=== PATIENT | male | born 1950 | race African-American/Black ===

== ENCOUNTER 2021-07-12 14:32 | Inpatient (IN) | payer MEDICARE, OTHER ==
[~2021-07-12] VITALS: Ht 170.2 cm; Wt 75.5 kg
[~2021-07-12 14:32] MED LIST: ARIP2TAB27 PO; ASPI-1444 PO; CHOL500050 PO; DOXA2TAB86 PO; FERR325T27 PO; FLUO-177 PO; INSLAN SQ; INSU100C3 SQ; RISP0.5T39 PO; SIMV-261 PO; TESTC200I IM; TRAM50TA4 PO
[2021-07-12 15:07] LABS: BASOPHILS % (AUTO) 0.4 % (0.0-2.0); EOSINOPHILS % (AUTO) 0.1 % (1.0-6.0); HEMOGLOBIN 12.6 g/dL (13.5-17.5); LYMPHOCYTES # (AUTO) 1.1 K/uL (1.0-4.8); LYMPHOCYTES % (AUTO) 12.1 % (22.0-44.0); MEAN CORPUSCULAR HGB CONC 34.1 G/dL (31.0-37.0); MEAN CORPUSCULAR VOLUME 88 fL (80-100); MONOCYTES # (AUTO) 1.1 K/uL (0.1-1.0); MONOCYTES % (AUTO) 12.1 % (2.0-9.0); NEUTROPHILS # (AUTO) 6.9 K/uL (1.8-7.7); NEUTROPHILS % (AUTO) 75.3 % (40.0-70.0); PLATELET COUNT (AUTO) 458 K/uL (150-450); RED BLOOD CELL COUNT(AUTO) 4.21 MIL/uL (4.50-5.90); RED CELL DISTRIBUTION WIDTH 13.5 % (11.5-14.5)
[2021-07-12 15:32] LABS: ALANINE AMINOTRANSFERASE 123 U/L (12-78); ALBUMIN 4.2 g/dL (3.4-5.0); ALKALINE PHOSPHATASE 65 U/L (46-116); ANION GAP 19 mmol/L (8-16); ASPARTATE AMINOTRANSFERASE 220 U/L (15-37); BILIRUBIN,TOTAL 0.8 mg/dL (0.1-1.0); CALCIUM, TOTAL 9.9 mg/dL (8.8-10.5); CARBON DIOXIDE 17 mmol/L (22-29); CHLORIDE 89 mmol/L (98-107); CREATININE 6.88 mg/dL (0.60-1.30); GLOMERULAR FILTR. RATE CALC 10 mL/min (>60); GLUCOSE,RANDOM 97 mg/dL (70-110); POTASSIUM 5.9 mmol/L (3.5-5.1); SODIUM SERUM 125 mmol/L (136-145); THYROID STIMULATING HORMONE 1.55 uIU/mL (0.36-3.74); TOTAL PROTEIN, SERUM 9.8 g/dL (6.4-8.2)
[2021-07-12 15:39] LABS: COVID AG,FIA SOURCE NASAL SWAB
[2021-07-12 15:41] LABS: UREA NITROGEN, BLOOD 128 mg/dL (7-18)
[2021-07-12 15:45] LABS: APPEARANCE,URINE CLEAR (CLEAR); BILIRUBIN,URINE NEGATIVE (NEGATIVE); GLUCOSE, URINE (UA) NEGATIVE (NEGATIVE); KETONES,URINE NEGATIVE (NEGATIVE); LEUKOCYTE ESTERASE ,URINE NEGATIVE (NEGATIVE); NITRATE,URINE NEGATIVE (NEGATIVE); OCCULT BLOOD,URINE TRACE (NEGATIVE); PROTEIN,URINE TRACE mg/dL (NEGATIVE); SPECIFIC GRAVITIY, URINE 1.011 (1.003-1.030); UROBILINOGEN,URINE <=1.0 mg/dL (<=1.0)
[2021-07-12 15:48] LABS: BACTERIA,URINE None Seen /HPF (None Seen); RBC,URINE 0-2 /HPF (0-2); WBC,URINE None Seen /HPF (0-5)
[2021-07-12 15:52] LABS: AMPHET/METH SCREEN,URINE NEGATIVE (NEGATIVE); BARBITURATE SCREEN, URINE NEGATIVE (NEGATIVE); BENZODIAZEPINES SCREEN,URINE NEGATIVE (NEGATIVE); CANNABINOID SCREEN,URINE POSITIVE (NEGATIVE); COCAINE SCREEN,URINE NEGATIVE (NEGATIVE); METHADONE SCREEN, URINE NEGATIVE (NEGATIVE); OPIATE SCREEN,URINE NEGATIVE (NEGATIVE)
[2021-07-12 16:01] LABS: PHENCYCLIDINE SCREEN,URINE NEGATIVE (NEGATIVE)
[2021-07-12] MEDS ORDERED: SODIUM CHLORIDE 0.9% 1,000 ML IV ONE ×3 (16:15→17:15)
[2021-07-12] MEDS ORDERED: LORazepam 2 MG/ML VIAL IVP ONE (16:15)
[2021-07-12] MEDS ORDERED: SODIUM POLYSTYRENE SULFONATE 15 GM/60 ML SUSPENSION BOTTLE PO ONE (16:45)
[2021-07-12] MEDS ORDERED: CALCIUM GLUCONATE 1,000 MG in DEXTROSE 5%-WATER 50 ML IV ONE (16:45)
[2021-07-12] MEDS ORDERED: INSULIN REGULAR, HUMAN 100 UNITS/ML IVP ONE (16:45)
[2021-07-12] MEDS ORDERED: ALBUTEROL SULFATE 2.5 MG/0.5 ML NEB SOLUTION NEB ONE (16:45)
[2021-07-12] MEDS ORDERED: FUROSEMIDE 40 MG/4 ML VIAL IVP ONE (16:45)
[2021-07-12] MEDS ORDERED: DEXTROSE 50%-WATER 25 GM/50 ML SYRINGE IVP ONE (16:45)
[2021-07-12] MEDS ORDERED: SODIUM BICARBONATE [ADULT] 8.4% 50 MEQ/50 ML SYRINGE IVP ONE (16:45)
[2021-07-12] MEDS ORDERED: ACETAMINOPHEN 325 MG TABLET PO PRN (17:00)
[2021-07-12] MEDS ORDERED: DEXTROSE 50%-WATER 25 GM/50 ML SYRINGE IVP PRN (17:00)
[2021-07-12] MEDS ORDERED: ONDANSETRON HCL 4 MG/2 ML VIAL IVP PRN (17:00)
[2021-07-12 17:19] LABS: PROTHROMBIN TIME 10.7 SEC (9.4-11.6)
[2021-07-12 17:59] LABS: LACTIC ACID 1.7 mmol/L (0.4-2.0)
[2021-07-12 18:06] LABS: SALICYLATE 2.9 mg/dL (2.8-20.0)
[2021-07-12 18:07] LABS: ACETAMINOPHEN < 2 mcg/mL (10-30)
[2021-07-12 18:21] LABS: GLUCOSE,POINT OF CARE 69 MG/DL (70-110)
[2021-07-12 19:32] VITALS: BP 133/74
[2021-07-12] MEDS: DOCUSATE SODIUM 100 MG CAPSULE PO SCH (21:00)
[2021-07-12] MEDS: HEPARIN SODIUM,PORCINE 5,000 UNITS/ML VIAL SQ SCH (21:00)
[2021-07-12 22:59] LABS: CALCIUM, TOTAL 8.6 mg/dL (8.8-10.5); CREATININE 5.95 mg/dL (0.60-1.30); MAGNESIUM 2.5 mg/dL (1.80-2.40); PHOSPHORUS 6.3 mg/dL (2.5-4.9); POTASSIUM 4.8 mmol/L (3.5-5.1)
[2021-07-13 00:09] VITALS: BP 115/79
[2021-07-13] MEDS: SODIUM CHLORIDE 0.9% 1,000 ML IV SCH ×2 (01:02→16:41)
[2021-07-13 04:32] VITALS: BP 114/71
[2021-07-13 06:25] LABS: ALBUMIN 3.2 g/dL (3.4-5.0); BILIRUBIN,TOTAL 0.6 mg/dL (0.1-1.0); CREATININE 5.05 mg/dL (0.60-1.30); MAGNESIUM 2.5 mg/dL (1.80-2.40); PHOSPHORUS 5.9 mg/dL (2.5-4.9); POTASSIUM 4.8 mmol/L (3.5-5.1); TOTAL PROTEIN, SERUM 7.6 g/dL (6.4-8.2)
[2021-07-13] MEDS: PANTOPRAZOLE SODIUM 40 MG DR TABLET PO SCH (08:05)
[2021-07-13] MEDS: VITAMIN B COMP/VIT C/FOLIC ACID CAPSULE PO SCH (08:05)
[2021-07-13] MEDS: HEPARIN SODIUM,PORCINE 5,000 UNITS/ML VIAL SQ SCH ×2 (08:05→20:24)
[2021-07-13 08:38] VITALS: BP 133/83
[2021-07-13] MEDS: DOCUSATE SODIUM 100 MG CAPSULE PO SCH ×2 (09:00→20:25)
[2021-07-13 13:45] VITALS: BP 138/72
[2021-07-13 19:24] VITALS: BP 118/63
[2021-07-13 20:26] LABS: GLUCOMETER DEV NAME(LOC) 5N.1C; GLUCOSE,POINT OF CARE 117 MG/DL (70-110)
[2021-07-13 20:26] LABS: GLUCOMETER DEV NAME(LOC) 5N.1C; GLUCOSE,POINT OF CARE 119 MG/DL (70-110)
[2021-07-13 21:06] LABS: GLUCOMETER DEV NAME(LOC) 5N.1C; GLUCOSE,POINT OF CARE 131 MG/DL (70-110)
[2021-07-14 00:18] VITALS: BP 131/75
[2021-07-14] MEDS: SODIUM CHLORIDE 0.9% 1,000 ML IV SCH ×2 (04:36→21:09)
[2021-07-14 04:42] VITALS: BP 104/63
[2021-07-14 07:20] LABS: BASOPHILS % (AUTO) 0.3 % (0.0-2.0); EOSINOPHILS % (AUTO) 1.5 % (1.0-6.0); HEMATOCRIT 29.1 % (41-53); HEMOGLOBIN 9.9 g/dL (13.5-17.5); LYMPHOCYTES # (AUTO) 1.4 K/uL (1.0-4.8); LYMPHOCYTES % (AUTO) 22.7 % (22.0-44.0); MEAN CORPUSCULAR HEMOGLOBIN 30.2 pg (26.0-34.0); MEAN CORPUSCULAR HGB CONC 34.1 G/dL (31.0-37.0); MEAN CORPUSCULAR VOLUME 89 fL (80-100); MONOCYTES # (AUTO) 0.9 K/uL (0.1-1.0); MONOCYTES % (AUTO) 15.6 % (2.0-9.0); NEUTROPHILS # (AUTO) 3.6 K/uL (1.8-7.7); NEUTROPHILS % (AUTO) 59.9 % (40.0-70.0); PLATELET COUNT (AUTO) 353 K/uL (150-450); RED BLOOD CELL COUNT(AUTO) 3.29 MIL/uL (4.50-5.90); RED CELL DISTRIBUTION WIDTH 13.2 % (11.5-14.5)
[2021-07-14 07:36] LABS: CALCIUM, TOTAL 8.6 mg/dL (8.8-10.5); CREATININE 2.13 mg/dL (0.60-1.30); MAGNESIUM 1.6 mg/dL (1.80-2.40); PHOSPHORUS 3.5 mg/dL (2.5-4.9); POTASSIUM 4.2 mmol/L (3.5-5.1)
[2021-07-14 08:06] VITALS: BP 104/61
[2021-07-14] MEDS: DOCUSATE SODIUM 100 MG CAPSULE PO SCH ×2 (08:56→20:26)
[2021-07-14] MEDS: HEPARIN SODIUM,PORCINE 5,000 UNITS/ML VIAL SQ SCH ×2 (08:56→20:27)
[2021-07-14] MEDS: PANTOPRAZOLE SODIUM 40 MG DR TABLET PO SCH (08:56)
[2021-07-14] MEDS: VITAMIN B COMP/VIT C/FOLIC ACID CAPSULE PO SCH (08:56)
[2021-07-14] MEDS: LORazepam 2 MG/ML VIAL IVP PRN (10:33)
[2021-07-14 15:48] VITALS: BP 101/61
[2021-07-14 20:00] VITALS: BP 123/67
[2021-07-15] VITALS (7 sets, daily range): BP systolic 110–131; BP diastolic 61–77
[2021-07-15] MEDS: DOCUSATE SODIUM 100 MG CAPSULE PO SCH ×2 (09:00→21:15)
[2021-07-15] MEDS: HEPARIN SODIUM,PORCINE 5,000 UNITS/ML VIAL SQ SCH ×2 (09:19→21:15)
[2021-07-15] MEDS: LORazepam 2 MG/ML VIAL IVP PRN (09:19)
[2021-07-15] MEDS: PANTOPRAZOLE SODIUM 40 MG DR TABLET PO SCH (09:19)
[2021-07-15] MEDS: VITAMIN B COMP/VIT C/FOLIC ACID CAPSULE PO SCH (09:19)
[2021-07-15] MEDS: SODIUM CHLORIDE 0.9% 1,000 ML IV SCH (09:20)
[2021-07-15 10:07] LABS: GLUCOMETER DEV NAME(LOC) 5N.1C; GLUCOSE,POINT OF CARE 106 MG/DL (70-110)
[2021-07-15 10:07] LABS: GLUCOMETER DEV NAME(LOC) 5N.1C; GLUCOSE,POINT OF CARE 100 MG/DL (70-110)
[2021-07-15 10:07] LABS: GLUCOMETER DEV NAME(LOC) 5N.1C; GLUCOSE,POINT OF CARE 138 MG/DL (70-110)
[2021-07-15 10:07] LABS: GLUCOMETER DEV NAME(LOC) 5N.1C; GLUCOSE,POINT OF CARE 99 MG/DL (70-110)
[2021-07-15 10:07] LABS: GLUCOMETER DEV NAME(LOC) 5N.1C; GLUCOSE,POINT OF CARE 114 MG/DL (70-110)
[2021-07-15 10:11] LABS: GLUCOMETER DEV NAME(LOC) 5N.3; GLUCOSE,POINT OF CARE 76 MG/DL (70-110)
[2021-07-15] MEDS: INSULIN LISPRO 100 UNITS/ML SQ PRN (13:38)
[2021-07-15 20:16] LABS: GLUCOMETER DEV NAME(LOC) 5N.1C; GLUCOSE,POINT OF CARE 161 MG/DL (70-110)
[2021-07-15 20:16] LABS: GLUCOMETER DEV NAME(LOC) 5N.1C; GLUCOSE,POINT OF CARE 76 MG/DL (70-110)
[2021-07-15] MEDS ORDERED: SODIUM CHLORIDE 0.9% 500 ML IV ONE (20:17)
[2021-07-15 21:06] LABS: GLUCOMETER DEV NAME(LOC) 5N.3; GLUCOSE,POINT OF CARE 160 MG/DL (70-110)
[2021-07-15] MEDS: ZOLPIDEM TARTRATE 5 MG TABLET PO PRN (21:16)
[2021-07-16] MEDS: SODIUM CHLORIDE 0.9% 1,000 ML IV SCH (00:17)
[2021-07-16 03:47] VITALS: BP 104/63
[2021-07-16 06:01] LABS: GLUCOMETER DEV NAME(LOC) 5N.3; GLUCOSE,POINT OF CARE 95 MG/DL (70-110)
[2021-07-16 07:50] LABS: ANION GAP 6 mmol/L (8-16); CALCIUM, TOTAL 8.1 mg/dL (8.8-10.5); CARBON DIOXIDE 24 mmol/L (22-29); CHLORIDE 106 mmol/L (98-107); CREATININE 1.18 mg/dL (0.60-1.30); GLOMERULAR FILTR. RATE CALC > 60 mL/min (>60); GLUCOSE,RANDOM 91 mg/dL (70-110); POTASSIUM 4.1 mmol/L (3.5-5.1); SODIUM SERUM 136 mmol/L (136-145); UREA NITROGEN, BLOOD 24 mg/dL (7-18)
[2021-07-16 07:53] VITALS: BP 141/79
[2021-07-16] MEDS: VITAMIN B COMP/VIT C/FOLIC ACID CAPSULE PO SCH (09:56)
[2021-07-16] MEDS: HEPARIN SODIUM,PORCINE 5,000 UNITS/ML VIAL SQ SCH ×2 (09:56→20:09)
[2021-07-16] MEDS: PANTOPRAZOLE SODIUM 40 MG DR TABLET PO SCH (09:57)
[2021-07-16] MEDS: DOCUSATE SODIUM 100 MG CAPSULE PO SCH ×2 (09:57→20:09)
[2021-07-16] MEDS ORDERED: MAGNESIUM SULFATE 3 GM in DEXTROSE 5%-WATER 100 ML IV ONE (10:00)
[2021-07-16] MEDS ORDERED: TEST200V21 IM (11:06)
[2021-07-16] MEDS ORDERED: INSU100V SQ (11:06)
[2021-07-16] MEDS ORDERED: CHOL25TA4 PO (11:06)
[2021-07-16 11:39] VITALS: BP 126/75
[2021-07-16 15:38] VITALS: BP 147/75
[2021-07-16 18:46] LABS: GLUCOMETER DEV NAME(LOC) 5N.3; GLUCOSE,POINT OF CARE 101 MG/DL (70-110)
[2021-07-16 18:46] LABS: GLUCOMETER DEV NAME(LOC) 5N.3; GLUCOSE,POINT OF CARE 116 MG/DL (70-110)
[2021-07-16 20:05] VITALS: BP 126/75
[2021-07-16] MEDS: ZOLPIDEM TARTRATE 5 MG TABLET PO PRN (20:09)
[2021-07-16 22:07] LABS: GLUCOMETER DEV NAME(LOC) 5N.1C; GLUCOSE,POINT OF CARE 135 MG/DL (70-110)
[2021-07-16 23:43] VITALS: BP 117/70
[2021-07-17 04:20] VITALS: BP 124/80
[2021-07-17 06:56] LABS: ANION GAP 9 mmol/L (8-16); CALCIUM, TOTAL 7.9 mg/dL (8.8-10.5); CARBON DIOXIDE 22 mmol/L (22-29); CHLORIDE 103 mmol/L (98-107); CREATININE 1.08 mg/dL (0.60-1.30); GLOMERULAR FILTR. RATE CALC > 60 mL/min (>60); GLUCOSE,RANDOM 101 mg/dL (70-110); SODIUM SERUM 134 mmol/L (136-145); UREA NITROGEN, BLOOD 14 mg/dL (7-18)
[2021-07-17 07:35] VITALS: BP 151/70
[2021-07-17] MEDS: DOCUSATE SODIUM 100 MG CAPSULE PO SCH ×2 (08:49→21:00)
[2021-07-17] MEDS: VITAMIN B COMP/VIT C/FOLIC ACID CAPSULE PO SCH (08:50)
[2021-07-17] MEDS: PANTOPRAZOLE SODIUM 40 MG DR TABLET PO SCH (08:50)
[2021-07-17] MEDS: HEPARIN SODIUM,PORCINE 5,000 UNITS/ML VIAL SQ SCH ×2 (08:50→21:41)
[2021-07-17] MEDS ORDERED: MAGNESIUM SULFATE 3 GM in DEXTROSE 5%-WATER 100 ML IV ONE (09:00)
[2021-07-17 10:49] VITALS: BP 129/69
[2021-07-17 13:06] LABS: GLUCOMETER DEV NAME(LOC) 5N.3; GLUCOSE,POINT OF CARE 125 MG/DL (70-110)
[2021-07-17 13:06] LABS: GLUCOMETER DEV NAME(LOC) 5N.3; GLUCOSE,POINT OF CARE 93 MG/DL (70-110)
[2021-07-17 15:01] VITALS: BP 131/83
[2021-07-17 18:20] LABS: GLUCOMETER DEV NAME(LOC) 5N.3; GLUCOSE,POINT OF CARE 100 MG/DL (70-110)
[2021-07-17 19:40] VITALS: BP 151/87
[2021-07-17] MEDS: ZOLPIDEM TARTRATE 5 MG TABLET PO PRN (21:40)
[2021-07-18 00:01] VITALS: BP 126/80
[2021-07-18 04:43] VITALS: BP 115/76
[2021-07-18 05:56] LABS: GLUCOMETER DEV NAME(LOC) 5N.3; GLUCOSE,POINT OF CARE 129 MG/DL (70-110)
[2021-07-18 05:56] LABS: GLUCOMETER DEV NAME(LOC) 5N.3; GLUCOSE,POINT OF CARE 94 MG/DL (70-110)
[2021-07-18 06:36] LABS: ANION GAP 7 mmol/L (8-16); CALCIUM, TOTAL 8.1 mg/dL (8.8-10.5); CARBON DIOXIDE 23 mmol/L (22-29); CHLORIDE 103 mmol/L (98-107); CREATININE 1.06 mg/dL (0.60-1.30); GLOMERULAR FILTR. RATE CALC > 60 mL/min (>60); GLUCOSE,RANDOM 93 mg/dL (70-110); SODIUM SERUM 133 mmol/L (136-145); UREA NITROGEN, BLOOD 13 mg/dL (7-18)
[2021-07-18 07:42] VITALS: BP 128/68
[2021-07-18] MEDS ORDERED: MAGNESIUM SULFATE 2 GM/WATER 50 ML IV ONE (08:00)
[2021-07-18] MEDS: DOCUSATE SODIUM 100 MG CAPSULE PO SCH ×2 (09:05→20:26)
[2021-07-18] MEDS: HEPARIN SODIUM,PORCINE 5,000 UNITS/ML VIAL SQ SCH ×2 (09:05→20:26)
[2021-07-18] MEDS: PANTOPRAZOLE SODIUM 40 MG DR TABLET PO SCH (09:05)
[2021-07-18] MEDS: VITAMIN B COMP/VIT C/FOLIC ACID CAPSULE PO SCH (09:05)
[2021-07-18 11:26] VITALS: BP 127/79
[2021-07-18 12:36] LABS: GLUCOMETER DEV NAME(LOC) 5N.3; GLUCOSE,POINT OF CARE 108 MG/DL (70-110)
[2021-07-18 16:04] VITALS: BP 153/85
[2021-07-18 18:27] LABS: GLUCOMETER DEV NAME(LOC) 5N.3; GLUCOSE,POINT OF CARE 80 MG/DL (70-110)
[2021-07-18 19:44] VITALS: BP 127/75
[2021-07-18] MEDS: INSULIN LISPRO 100 UNITS/ML SQ PRN (20:26)
[2021-07-18] MEDS: ZOLPIDEM TARTRATE 5 MG TABLET PO PRN (20:37)
[2021-07-19 00:23] VITALS: BP 122/65
[2021-07-19 04:18] VITALS: BP 128/75
[2021-07-19 06:56] LABS: ANION GAP 6 mmol/L (8-16); CALCIUM, TOTAL 8.3 mg/dL (8.8-10.5); CARBON DIOXIDE 25 mmol/L (22-29); CHLORIDE 102 mmol/L (98-107); CREATININE 1.07 mg/dL (0.60-1.30); GLOMERULAR FILTR. RATE CALC > 60 mL/min (>60); GLUCOSE,RANDOM 92 mg/dL (70-110); SODIUM SERUM 133 mmol/L (136-145); UREA NITROGEN, BLOOD 16 mg/dL (7-18)
[2021-07-19 07:48] VITALS: BP 123/68
[2021-07-19] MEDS: PANTOPRAZOLE SODIUM 40 MG DR TABLET PO SCH (08:06)
[2021-07-19] MEDS: HEPARIN SODIUM,PORCINE 5,000 UNITS/ML VIAL SQ SCH (08:06)
[2021-07-19] MEDS: VITAMIN B COMP/VIT C/FOLIC ACID CAPSULE PO SCH (08:06)
[2021-07-19] MEDS: DOCUSATE SODIUM 100 MG CAPSULE PO SCH (08:07)
[2021-07-19] MEDS ORDERED: MAGNESIUM SULFATE 3 GM in DEXTROSE 5%-WATER 100 ML IV ONE (08:15)
[2021-07-19 11:13] VITALS: BP 145/94
[2021-07-19 15:20] VITALS: BP 132/80
[2021-07-19 16:56] LABS: GLUCOMETER DEV NAME(LOC) 5N.3; GLUCOSE,POINT OF CARE 141 MG/DL (70-110)
[2021-07-19 16:56] LABS: GLUCOMETER DEV NAME(LOC) 5N.3; GLUCOSE,POINT OF CARE 98 MG/DL (70-110)
[2021-07-19 16:56] LABS: GLUCOMETER DEV NAME(LOC) 5N.3; GLUCOSE,POINT OF CARE 89 MG/DL (70-110)
[2021-07-19] MEDS ORDERED: MAGNESIUM SULFATE 1 GM in DEXTROSE 5%-WATER 50 ML IV ONE (18:00)
== END 2021-07-19 17:00 | disposition home or self-care (01) | DRG 682 ==
LOC: EMS 14:34 → 5N 16:47
PROVIDERS: ADMIT Internal Medicine; ATTEND Internal Medicine
DX: N17.0 Acute kidney failure with tubular necrosis (principal); G92.8 Other toxic encephalopathy; E87.1 Hypo-osmolality and hyponatremia; E11.22 Type 2 diabetes mellitus with diabetic chronic kidney disease; E87.5 Hyperkalemia; F20.9 Schizophrenia, unspecified; D64.9 Anemia, unspecified; E83.42 Hypomagnesemia; E86.1 Hypovolemia; N18.9 Chronic kidney disease, unspecified; I12.9 Hypertensive chronic kidney disease with stage 1 through stage 4 chronic kidney disease, or unspecified chronic kidney disease; E78.00 Pure hypercholesterolemia, unspecified; F43.21 Adjustment disorder with depressed mood; F12.10 Cannabis abuse, uncomplicated; K70.9 Alcoholic liver disease, unspecified; F10.20 Alcohol dependence, uncomplicated; Y90.0 Blood alcohol level of less than 20 mg/100 ml; Z20.822 Contact with and (suspected) exposure to COVID-19; M19.90 Unspecified osteoarthritis, unspecified site; I44.0 Atrioventricular block, first degree; Z79.4 Long term (current) use of insulin; Z91.19 Patient's noncompliance with other medical treatment and regimen; Z79.899 Other long term (current) drug therapy; Z82.49 Family history of ischemic heart disease and other diseases of the circulatory system; Z91.14 Patient's other noncompliance with medication regimen; Z83.3 Family history of diabetes mellitus
CPT/HCPCS: 76700; 80048; 80053; 81001; 82009; 82533; 82962; 83605; 83735; 83930; 83935; 84100; 84300; 84443; 85025; 85610; 93005; 97161; 97530; 99291; G0480; G0481; J0610; J1644; J1815; J1940; J2060; J3475; J3490; J7030; J7040; J7060

== ENCOUNTER 2023-08-15 16:36 | Inpatient (IN) | payer OTHER ==
[~2023-08-15] VITALS: Ht 170.2 cm; Wt 82.6 kg
[~2023-08-15 16:36] MED LIST changes: -ARIP2TAB27 PO; +CEFT2VIA60 IM; +CHOL25TA4 PO; -CHOL500050 PO; +HEPA500018 SQ; -INSLAN SQ; -INSU100C3 SQ; +METR500 PO; -RISP0.5T39 PO; -TESTC200I IM; -TRAM50TA4 PO
[2023-08-15] MEDS: FUROSEMIDE 20 MG/2 ML VIAL IVP ONE (17:08)
[2023-08-15 17:23] LABS: BASOPHILS % (AUTO) 0.8 % (0.0-2.0); EOSINOPHILS % (AUTO) 0.9 % (1.0-6.0); HEMATOCRIT 38.4 % (41-53); HEMOGLOBIN 12.5 g/dL (13.5-17.5); LYMPHOCYTES # (AUTO) 0.9 K/uL (1.0-4.8); LYMPHOCYTES % (AUTO) 17.6 % (22.0-44.0); MEAN CORPUSCULAR HEMOGLOBIN 28.8 pg (26.0-34.0); MEAN CORPUSCULAR HGB CONC 32.5 G/dL (31.0-37.0); MEAN CORPUSCULAR VOLUME 89 fL (80-100); MONOCYTES # (AUTO) 0.6 K/uL (0.1-1.0); MONOCYTES % (AUTO) 12.5 % (2.0-9.0); NEUTROPHILS # (AUTO) 3.4 K/uL (1.8-7.7); NEUTROPHILS % (AUTO) 68.2 % (40.0-70.0); PLATELET COUNT (AUTO) 317 K/uL (150-450); RED BLOOD CELL COUNT(AUTO) 4.34 MIL/uL (4.50-5.90); RED CELL DISTRIBUTION WIDTH 15.4 % (11.5-14.5)
[2023-08-15 17:27] LABS: ANION GAP 13 mmol/L (8-16); CALCIUM, TOTAL 8.4 mg/dL (8.8-10.5); CARBON DIOXIDE 22 mmol/L (22-29); CHLORIDE 97 mmol/L (98-107); CREATININE 1.13 mg/dL (0.60-1.30); GLOMERULAR FILTR. RATE CALC > 60 mL/min (>60); GLUCOSE,RANDOM 91 mg/dL (70-110); POTASSIUM 4.7 mmol/L (3.5-5.1); SODIUM SERUM 132 mmol/L (136-145); UREA NITROGEN, BLOOD 17 mg/dL (7-18)
[2023-08-15 17:35] LABS: TROPONIN I-HIGH SENSITIVITY 35 ng/L (<76)
[2023-08-15] MEDS: HYDROCODONE/ACETAMINOPHEN 5-325 MG TABLET PO ONE (17:36)
[2023-08-15 17:43] LABS: B-TYPE NATRIURETIC PEPTIDE 2650 pg/mL (0-100)
[2023-08-15 17:50] LABS: APPEARANCE,URINE CLEAR (CLEAR); BILIRUBIN,URINE NEGATIVE (NEGATIVE); COLOR,URINE LIGHT YELLOW (YELLOW); GLUCOSE, URINE (UA) NEGATIVE (NEGATIVE); KETONES,URINE NEGATIVE (NEGATIVE); LEUKOCYTE ESTERASE ,URINE NEGATIVE (NEGATIVE); NITRATE,URINE NEGATIVE (NEGATIVE); OCCULT BLOOD,URINE SMALL (NEGATIVE); PROTEIN,URINE 300-600,SEE CONFIRM mg/dL (NEGATIVE); SPECIFIC GRAVITIY, URINE 1.011 (1.003-1.030); UROBILINOGEN,URINE <=1.0 mg/dL (<=1.0)
[2023-08-15 17:52] LABS: ALANINE AMINOTRANSFERASE 23 U/L (12-78); ALKALINE PHOSPHATASE 155 U/L (46-116); ASPARTATE AMINOTRANSFERASE 34 U/L (15-37); BILIRUBIN,TOTAL 0.8 mg/dL (0.1-1.0); CREATINE KINASE, TOTAL ONLY 249 U/L (39-308); TOTAL PROTEIN, SERUM 8.2 g/dL (6.4-8.2)
[2023-08-15 17:59] LABS: SULFOSALICYLIC ACID,URINE 4+ (Negative)
[2023-08-15 18:01] LABS: BACTERIA,URINE None Seen /HPF (None Seen); RBC,URINE None Seen /HPF (0-2); WBC,URINE None Seen /HPF (0-5)
[2023-08-15 18:02] LABS: SQUAMOUS EPITHELIAL CELL,UR Rare /LPF (None Seen)
[2023-08-15 20:16] LABS: LACTIC ACID 1.6 mmol/L (0.4-2.0)
[2023-08-15] MEDS ORDERED: ONDANSETRON HCL 4 MG/2 ML VIAL IVP PRN (20:30)
[2023-08-15] MEDS ORDERED: SODIUM CHLORIDE 0.9% 100 ML ONE (20:39)
[2023-08-15] MEDS ORDERED: IOHEXOL 350 MG/ML 100 ML VIAL ONE (20:39)
[2023-08-15] MEDS: DOCUSATE SODIUM 100 MG CAPSULE PO SCH (21:00)
[2023-08-15] MEDS: SIMVASTATIN 40 MG TABLET PO SCH (22:14)
[2023-08-15 23:10] VITALS: BP 172/94; PULSE 84; RESP 20; TEMP 97.5
[2023-08-15 23:49] LABS: TROPONIN I-HIGH SENSITIVITY 40 ng/L (<76)
[2023-08-16] MEDS ORDERED: INSULIN LISPRO 100 UNITS/ML SQ PRN
[2023-08-16] MEDS: HEPARIN SODIUM,PORCINE 5,000 UNITS/ML VIAL SQ SCH
[2023-08-16] MEDS ORDERED: SODIUM CHLORIDE 0.9% 1,000 ML ONE (02:04)
[2023-08-16] MEDS: VANCOMYCIN 1.5 GM/WATER(PEG) 300 ML IV ONE (02:25)
[2023-08-16] MEDS: PIPERACILLIN/TAZO 3.375 GM/D5W 50 ML IV SCH (02:26)
[2023-08-16 05:25] VITALS: BP 143/77; PULSE 61; RESP 19; TEMP 98
[2023-08-16] MEDS: FUROSEMIDE 20 MG/2 ML VIAL IVP SCH (05:33)
[2023-08-16] MEDS: ACETAMINOPHEN 325 MG TABLET PO PRN (06:24)
[2023-08-16 06:38] LABS: BASOPHILS % (AUTO) 0.5 % (0.0-2.0); EOSINOPHILS % (AUTO) 2.4 % (1.0-6.0); HEMATOCRIT 37.4 % (41-53); HEMOGLOBIN 12.2 g/dL (13.5-17.5); LYMPHOCYTES # (AUTO) 1.2 K/uL (1.0-4.8); LYMPHOCYTES % (AUTO) 23.9 % (22.0-44.0); MEAN CORPUSCULAR HEMOGLOBIN 28.8 pg (26.0-34.0); MEAN CORPUSCULAR HGB CONC 32.7 G/dL (31.0-37.0); MEAN CORPUSCULAR VOLUME 88 fL (80-100); MONOCYTES # (AUTO) 0.9 K/uL (0.1-1.0); MONOCYTES % (AUTO) 18.9 % (2.0-9.0); NEUTROPHILS # (AUTO) 2.6 K/uL (1.8-7.7); NEUTROPHILS % (AUTO) 54.3 % (40.0-70.0); PLATELET COUNT (AUTO) 291 K/uL (150-450); RED BLOOD CELL COUNT(AUTO) 4.24 MIL/uL (4.50-5.90); WHITE BLOOD COUNT (AUTO) 4.9 K/uL (4.5-11.0)
[2023-08-16 06:41] LABS: GLUCOMETER DEV NAME(LOC) 5N.2C; GLUCOSE,POINT OF CARE 63 MG/DL (70-110)
[2023-08-16 06:58] LABS: ANION GAP 12 mmol/L (8-16); CALCIUM, TOTAL 8.1 mg/dL (8.8-10.5); CARBON DIOXIDE 20 mmol/L (22-29); CHLORIDE 97 mmol/L (98-107); GLOMERULAR FILTR. RATE CALC > 60 mL/min (>60); GLUCOSE,RANDOM 60 mg/dL (70-110); POTASSIUM 4.7 mmol/L (3.5-5.1); SODIUM SERUM 129 mmol/L (136-145); UREA NITROGEN, BLOOD 16 mg/dL (7-18)
[2023-08-16 07:31] VITALS: BP 147/84; PULSE 59; RESP 17; TEMP 98.3
[2023-08-16] MEDS: ASPIRIN 81 MG CHEWABLE TABLET PO SCH (07:59)
[2023-08-16] MEDS: FERROUS SULFATE 325 MG EC TABLET PO SCH (07:59)
[2023-08-16] MEDS: FLUoxetine HCL 20 MG CAPSULE PO SCH (08:00)
[2023-08-16] MEDS: CARVEDILOL 3.125 MG TABLET PO SCH (08:00)
[2023-08-16] MEDS: DOXAZOSIN MESYLATE 2 MG TABLET PO SCH (08:01)
[2023-08-16] MEDS: LISINOPRIL 5 MG TABLET PO SCH (08:01)
[2023-08-16] MEDS: SPIRONOLACTONE 25 MG TABLET PO SCH (08:01)
[2023-08-16] MEDS: VANCOMYCIN 750 MG/WATER(PEG) 150 ML IV SCH (09:19)
[2023-08-16 11:28] VITALS: BP 111/61; PULSE 55; RESP 18; TEMP 97.7
[2023-08-16 13:31] VITALS: PULSE 58; RESP 20; O2SAT 98
[2023-08-16] MEDS: HYDROCODONE/ACETAMINOPHEN 5-325 MG TABLET PO PRN (14:19)
[2023-08-16 14:21] LABS: GLUCOMETER DEV NAME(LOC) 5N.2C; GLUCOSE,POINT OF CARE 80 MG/DL (70-110)
[2023-08-16 15:49] VITALS: BP 129/76; PULSE 58; RESP 19; TEMP 97.9
[2023-08-16 20:30] VITALS: BP 117/78; PULSE 56; RESP 20; TEMP 97.5
[2023-08-16 21:20] LABS: GLUCOMETER DEV NAME(LOC) 5N.1D; GLUCOSE,POINT OF CARE 109 MG/DL (70-110)
[2023-08-16 21:25] LABS: GLUCOMETER DEV NAME(LOC) 5N.2C; GLUCOSE,POINT OF CARE 86 MG/DL (70-110)
[2023-08-16 21:26] LABS: GLUCOMETER DEV NAME(LOC) 5N.2C; GLUCOSE,POINT OF CARE 110 MG/DL (70-110)
[2023-08-17] VITALS (7 sets, daily range): BP systolic 114–146; BP diastolic 58–87; PULSE 50–60; RESP 18–20; TEMP 97.7–98
[2023-08-17 08:13] LABS: CALCIUM, TOTAL 8.1 mg/dL (8.8-10.5); CREATININE 1.43 mg/dL (0.60-1.30); POTASSIUM 4.1 mmol/L (3.5-5.1)
[2023-08-17 11:25] LABS: GLUCOMETER DEV NAME(LOC) 5S.1B; GLUCOSE,POINT OF CARE 70 MG/DL (70-110)
[2023-08-17 12:40] LABS: GLUCOMETER DEV NAME(LOC) 5N.2C; GLUCOSE,POINT OF CARE 98 MG/DL (70-110)
[2023-08-17 13:05] LABS: TROPONIN I-HIGH SENSITIVITY 37 ng/L (<76)
[2023-08-17 20:21] LABS: GLUCOMETER DEV NAME(LOC) 5S.1B; GLUCOSE,POINT OF CARE 99 MG/DL (70-110)
[2023-08-17 20:21] LABS: GLUCOMETER DEV NAME(LOC) 5S.1B; GLUCOSE,POINT OF CARE 115 MG/DL (70-110)
[2023-08-17] MEDS: FUROSEMIDE 20 MG/2 ML VIAL IVP SCH (20:45)
[2023-08-18 04:41] VITALS: BP 135/84; PULSE 55; RESP 20; TEMP 97.8
[2023-08-18 06:45] LABS: BASOPHILS % (AUTO) 0.6 % (0.0-2.0); EOSINOPHILS % (AUTO) 5.5 % (1.0-6.0); HEMATOCRIT 36.5 % (41-53); LYMPHOCYTES # (AUTO) 1.2 K/uL (1.0-4.8); LYMPHOCYTES % (AUTO) 34.2 % (22.0-44.0); MEAN CORPUSCULAR HEMOGLOBIN 28.7 pg (26.0-34.0); MEAN CORPUSCULAR HGB CONC 32.8 G/dL (31.0-37.0); MEAN CORPUSCULAR VOLUME 88 fL (80-100); MONOCYTES # (AUTO) 0.7 K/uL (0.1-1.0); MONOCYTES % (AUTO) 21.4 % (2.0-9.0); NEUTROPHILS # (AUTO) 1.3 K/uL (1.8-7.7); NEUTROPHILS % (AUTO) 38.3 % (40.0-70.0); PLATELET COUNT (AUTO) 245 K/uL (150-450); RED BLOOD CELL COUNT(AUTO) 4.17 MIL/uL (4.50-5.90); RED CELL DISTRIBUTION WIDTH 15.2 % (11.5-14.5); WHITE BLOOD COUNT (AUTO) 3.5 K/uL (4.5-11.0)
[2023-08-18 07:10] LABS: CALCIUM, TOTAL 8.5 mg/dL (8.8-10.5); CREATININE 1.55 mg/dL (0.60-1.30)
[2023-08-18] MEDS ORDERED: VANCOMYCIN 1GM/WATER(PEG/NADA) 200 ML IV SCH (08:00)
[2023-08-18 08:06] LABS: GLUCOMETER DEV NAME(LOC) 5N.1D; GLUCOSE,POINT OF CARE 92 MG/DL (70-110)
[2023-08-18 08:50] LABS: TROPONIN I-HIGH SENSITIVITY 32 ng/L (<76)
[2023-08-18 09:01] VITALS: BP 155/89; PULSE 56; RESP 18; TEMP 98
[2023-08-18] MEDS: LOSARTAN POTASSIUM 25 MG TABLET PO SCH (09:07)
[2023-08-18 10:10] LABS: GLUCOMETER DEV NAME(LOC) 5S.1B; GLUCOSE,POINT OF CARE 69 MG/DL (70-110)
[2023-08-18 12:15] VITALS: BP 136/88; PULSE 57; RESP 22; TEMP 97.8
[2023-08-18 13:16] LABS: GLUCOMETER DEV NAME(LOC) 5N.2C; GLUCOSE,POINT OF CARE 110 MG/DL (70-110)
[2023-08-18 18:00] VITALS: BP 143/88; PULSE 77; RESP 18; TEMP 97.8
[2023-08-18 20:38] VITALS: BP 141/90; PULSE 44; RESP 18; TEMP 97.7
[2023-08-18 21:50] LABS: GLUCOMETER DEV NAME(LOC) 5S.2C; GLUCOSE,POINT OF CARE 114 MG/DL (70-110)
[2023-08-18 23:53] VITALS: BP 133/61; PULSE 59; RESP 18; TEMP 97.7
[2023-08-19 02:15] LABS: GLUCOMETER DEV NAME(LOC) 5S.1B; GLUCOSE,POINT OF CARE 99 MG/DL (70-110)
[2023-08-19 03:25] VITALS: BP 107/63; PULSE 52; RESP 18; TEMP 98.3
[2023-08-19 07:06] LABS: CALCIUM, TOTAL 8.1 mg/dL (8.8-10.5); CREATININE 1.42 mg/dL (0.60-1.30); POTASSIUM 4.1 mmol/L (3.5-5.1)
[2023-08-19 08:00] VITALS: BP 118/60; PULSE 55; RESP 18; TEMP 98
[2023-08-19] MEDS: LEVOFLOXACIN 500 MG TABLET PO SCH (10:02)
[2023-08-19 11:03] VITALS: BP 155/81; PULSE 63; RESP 18; TEMP 98
[2023-08-19] MEDS ORDERED: LOSA-381 PO (12:35)
[2023-08-19] MEDS ORDERED: FURO20 PO (12:36)
[2023-08-19 15:13] VITALS: BP 139/81; PULSE 61; RESP 18; TEMP 98
[2023-08-19 16:00] VITALS: BP 141/82; PULSE 64; RESP 18; TEMP 98.1
[2023-08-19 16:21] LABS: GLUCOMETER DEV NAME(LOC) 5S.2C; GLUCOSE,POINT OF CARE 110 MG/DL (70-110)
[2023-08-19 16:21] LABS: GLUCOMETER DEV NAME(LOC) 5S.2C; GLUCOSE,POINT OF CARE 87 MG/DL (70-110)
[2023-08-19 16:21] LABS: GLUCOMETER DEV NAME(LOC) 5S.1B; GLUCOSE,POINT OF CARE 68 MG/DL (70-110)
[2023-08-19 20:18] VITALS: BP 139/84; PULSE 60; RESP 18; TEMP 97.9
[2023-08-20] VITALS: BP 146/86; PULSE 62; RESP 20; TEMP 98.2
[2023-08-20 00:11] LABS: GLUCOMETER DEV NAME(LOC) 5S.1B; GLUCOSE,POINT OF CARE 88 MG/DL (70-110)
[2023-08-20 00:16] LABS: GLUCOMETER DEV NAME(LOC) 5S.1B; GLUCOSE,POINT OF CARE 113 MG/DL (70-110)
[2023-08-20 04:00] VITALS: BP 144/94; PULSE 57; RESP 20; TEMP 97.8
[2023-08-20 07:15] LABS: ANION GAP 9 mmol/L (8-16); CALCIUM, TOTAL 7.8 mg/dL (8.8-10.5); CARBON DIOXIDE 23 mmol/L (22-29); CHLORIDE 103 mmol/L (98-107); CREATININE 1.39 mg/dL (0.60-1.30); GLOMERULAR FILTR. RATE CALC > 60 mL/min (>60); GLUCOSE,RANDOM 84 mg/dL (70-110); POTASSIUM 4.3 mmol/L (3.5-5.1); SODIUM SERUM 135 mmol/L (136-145); UREA NITROGEN, BLOOD 23 mg/dL (7-18)
[2023-08-20 07:56] LABS: GLUCOMETER DEV NAME(LOC) 5S.2C; GLUCOSE,POINT OF CARE 89 MG/DL (70-110)
[2023-08-20 08:31] VITALS: BP 146/88; PULSE 56; RESP 18; TEMP 98
[2023-08-20 10:57] VITALS: BP 121/61; PULSE 57; RESP 18; TEMP 98.4
[2023-08-20 14:56] LABS: GLUCOMETER DEV NAME(LOC) 5S.2C; GLUCOSE,POINT OF CARE 129 MG/DL (70-110)
[2023-08-20 16:12] VITALS: BP 129/70; PULSE 57; RESP 18; TEMP 98
[2023-08-20] MEDS: PERFLUTREN PROTEIN-A MICROSPHERES 0.22 MG/ML 3 ML VIAL IVP ONE (18:45)
[2023-08-20 20:45] VITALS: BP 167/97; PULSE 64; RESP 18; TEMP 98.6
[2023-08-20 23:06] LABS: GLUCOMETER DEV NAME(LOC) 5S.2C; GLUCOSE,POINT OF CARE 106 MG/DL (70-110)
[2023-08-21 00:07] VITALS: BP 109/63; PULSE 54; RESP 18; TEMP 97.7
[2023-08-21 03:40] VITALS: BP 112/71; PULSE 56; RESP 18; TEMP 97.7
[2023-08-21 07:37] VITALS: BP 134/74; PULSE 54; RESP 18; TEMP 97.7
[2023-08-21 11:13] VITALS: BP 125/72; PULSE 58; RESP 18; TEMP 97.9
[2023-08-21 11:56] LABS: GLUCOMETER DEV NAME(LOC) 5S.1B; GLUCOSE,POINT OF CARE 79 MG/DL (70-110)
[2023-08-21 12:10] LABS: GLUCOMETER DEV NAME(LOC) 5S.2C; GLUCOSE,POINT OF CARE 94 MG/DL (70-110)
[2023-08-21 15:58] VITALS: BP 134/84; PULSE 66; RESP 18; TEMP 98.2
[2023-08-21 17:51] LABS: GLUCOMETER DEV NAME(LOC) 5S.2C; GLUCOSE,POINT OF CARE 92 MG/DL (70-110)
[2023-08-21 20:30] VITALS: BP 152/88; PULSE 63; RESP 18; TEMP 97.8
[2023-08-22 00:46] VITALS: BP 131/67; PULSE 58; RESP 18; TEMP 97.5
[2023-08-22 04:48] VITALS: BP 111/61; PULSE 55; RESP 18; TEMP 97.4
[2023-08-22 06:01] LABS: GLUCOMETER DEV NAME(LOC) 5N.2C; GLUCOSE,POINT OF CARE 99 MG/DL (70-110)
[2023-08-22 08:00] VITALS: BP 140/82; PULSE 58; RESP 18; TEMP 97.7
[2023-08-22 16:32] VITALS: BP 135/84; PULSE 56; RESP 18; TEMP 97.7
[2023-08-22 17:12] VITALS: BP 128/61; PULSE 56; RESP 18; TEMP 97.4
[2023-08-22 17:45] LABS: GLUCOMETER DEV NAME(LOC) 5S.2C; GLUCOSE,POINT OF CARE 111 MG/DL (70-110)
[2023-08-22 19:23] VITALS: BP 142/77; PULSE 57; RESP 18; TEMP 97.5
[2023-08-23 04:55] VITALS: BP 114/58; PULSE 50; RESP 18; TEMP 97.9
[2023-08-23 05:21] LABS: GLUCOMETER DEV NAME(LOC) 5S.1B; GLUCOSE,POINT OF CARE 130 MG/DL (70-110)
[2023-08-23 05:21] LABS: GLUCOMETER DEV NAME(LOC) 5S.1B; GLUCOSE,POINT OF CARE 75 MG/DL (70-110)
[2023-08-23 05:21] LABS: GLUCOMETER DEV NAME(LOC) 5S.1B; GLUCOSE,POINT OF CARE 95 MG/DL (70-110)
[2023-08-23 07:01] LABS: GLUCOMETER DEV NAME(LOC) 5S.2C; GLUCOSE,POINT OF CARE 68 MG/DL (70-110)
[2023-08-23 07:35] VITALS: BP 122/66; PULSE 54; RESP 18; TEMP 98.1
[2023-08-23 11:32] VITALS: BP 131/81; PULSE 55; RESP 19; TEMP 97.8
[2023-08-23 12:30] LABS: GLUCOMETER DEV NAME(LOC) 5N.2C; GLUCOSE,POINT OF CARE 111 MG/DL (70-110)
[2023-08-23 12:55] LABS: GLUCOMETER DEV NAME(LOC) 5S.1B; GLUCOSE,POINT OF CARE 105 MG/DL (70-110)
[2023-08-23 15:13] VITALS: BP 118/69; PULSE 56; RESP 18; TEMP 98.4
[2023-08-23] MEDS: BACITRACIN 28 GM OINTMENT TP SCH (17:11)
[2023-08-23 18:11] LABS: GLUCOMETER DEV NAME(LOC) 5S.2C; GLUCOSE,POINT OF CARE 112 MG/DL (70-110)
[2023-08-23 19:33] VITALS: BP 140/76; PULSE 60; RESP 18; TEMP 97.5
[2023-08-23 21:00] LABS: GLUCOMETER DEV NAME(LOC) 5N.1D; GLUCOSE,POINT OF CARE 101 MG/DL (70-110)
[2023-08-23 23:34] VITALS: BP 120/60; PULSE 56; RESP 18; TEMP 97.8
[2023-08-24 03:36] VITALS: BP 123/72; PULSE 58; RESP 18; TEMP 98
[2023-08-24 07:01] LABS: GLUCOMETER DEV NAME(LOC) 5N.2C; GLUCOSE,POINT OF CARE 95 MG/DL (70-110)
[2023-08-24 07:06] LABS: EOSINOPHILS % (AUTO) 3.2 % (1.0-6.0); HEMATOCRIT 34.9 % (41-53); HEMOGLOBIN 11.3 g/dL (13.5-17.5); LYMPHOCYTES # (AUTO) 1.2 K/uL (1.0-4.8); LYMPHOCYTES % (AUTO) 33.4 % (22.0-44.0); MEAN CORPUSCULAR HEMOGLOBIN 28.7 pg (26.0-34.0); MEAN CORPUSCULAR HGB CONC 32.4 G/dL (31.0-37.0); MEAN CORPUSCULAR VOLUME 89 fL (80-100); MONOCYTES # (AUTO) 0.8 K/uL (0.1-1.0); NEUTROPHILS # (AUTO) 1.4 K/uL (1.8-7.7); NEUTROPHILS % (AUTO) 40.4 % (40.0-70.0); PLATELET COUNT (AUTO) 170 K/uL (150-450); RED BLOOD CELL COUNT(AUTO) 3.94 MIL/uL (4.50-5.90); RED CELL DISTRIBUTION WIDTH 15.7 % (11.5-14.5); WHITE BLOOD COUNT (AUTO) 3.5 K/uL (4.5-11.0)
[2023-08-24 07:46] LABS: ALANINE AMINOTRANSFERASE 44 U/L (12-78); ALBUMIN 2.6 g/dL (3.4-5.0); ALKALINE PHOSPHATASE 113 U/L (46-116); ASPARTATE AMINOTRANSFERASE 54 U/L (15-37); BILIRUBIN,TOTAL 0.5 mg/dL (0.1-1.0); CARBON DIOXIDE 22 mmol/L (22-29); CREATININE 1.33 mg/dL (0.60-1.30); GLOMERULAR FILTR. RATE CALC > 60 mL/min (>60); GLUCOSE,RANDOM 99 mg/dL (70-110); TOTAL PROTEIN, SERUM 7.4 g/dL (6.4-8.2); UREA NITROGEN, BLOOD 23 mg/dL (7-18)
[2023-08-24 07:58] LABS: ANION GAP 9 mmol/L (8-16); CHLORIDE 105 mmol/L (98-107); POTASSIUM 5.3 mmol/L (3.5-5.1); SODIUM SERUM 136 mmol/L (136-145)
[2023-08-24 09:48] VITALS: BP 140/82; PULSE 60; RESP 19; TEMP 98.1
[2023-08-24 12:01] LABS: GLUCOMETER DEV NAME(LOC) 5N.2C; GLUCOSE,POINT OF CARE 79 MG/DL (70-110)
[2023-08-24] MEDS: SODIUM POLYSTYRENE SULFONATE 15 GM/60 ML SUSPENSION BOTTLE PO ONE (14:50)
[2023-08-24 16:17] VITALS: BP 118/49; PULSE 56; RESP 20; TEMP 98
[2023-08-24 19:38] VITALS: BP 145/85; PULSE 58; RESP 19; TEMP 97.9
[2023-08-24 20:00] VITALS: BP 138/79; PULSE 60; RESP 18; TEMP 98
[2023-08-24 21:25] LABS: GLUCOMETER DEV NAME(LOC) 5S.2C; GLUCOSE,POINT OF CARE 90 MG/DL (70-110)
[2023-08-24 21:25] LABS: GLUCOMETER DEV NAME(LOC) 5S.2C; GLUCOSE,POINT OF CARE 98 MG/DL (70-110)
[2023-08-25] VITALS (9 sets, daily range): BP systolic 108–179; BP diastolic 51–89; PULSE 54–76; RESP 18–19; TEMP 97.8–98.6
[2023-08-25 08:08] LABS: BASOPHILS % (AUTO) 1.2 % (0.0-2.0); EOSINOPHILS % (AUTO) 3.8 % (1.0-6.0); HEMOGLOBIN 11.3 g/dL (13.5-17.5); LYMPHOCYTES # (AUTO) 1.2 K/uL (1.0-4.8); LYMPHOCYTES % (AUTO) 33.5 % (22.0-44.0); MEAN CORPUSCULAR HEMOGLOBIN 28.7 pg (26.0-34.0); MEAN CORPUSCULAR HGB CONC 32.3 G/dL (31.0-37.0); MEAN CORPUSCULAR VOLUME 89 fL (80-100); MONOCYTES # (AUTO) 0.7 K/uL (0.1-1.0); MONOCYTES % (AUTO) 21.3 % (2.0-9.0); NEUTROPHILS # (AUTO) 1.4 K/uL (1.8-7.7); NEUTROPHILS % (AUTO) 40.2 % (40.0-70.0); PLATELET COUNT (AUTO) 174 K/uL (150-450); RED BLOOD CELL COUNT(AUTO) 3.94 MIL/uL (4.50-5.90); RED CELL DISTRIBUTION WIDTH 15.5 % (11.5-14.5); WHITE BLOOD COUNT (AUTO) 3.5 K/uL (4.5-11.0)
[2023-08-25 08:19] LABS: ANION GAP 9 mmol/L (8-16); CARBON DIOXIDE 22 mmol/L (22-29); CHLORIDE 107 mmol/L (98-107); CREATININE 1.35 mg/dL (0.60-1.30); GLOMERULAR FILTR. RATE CALC > 60 mL/min (>60); GLUCOSE,RANDOM 70 mg/dL (70-110); POTASSIUM 5.5 mmol/L (3.5-5.1); SODIUM SERUM 138 mmol/L (136-145); UREA NITROGEN, BLOOD 25 mg/dL (7-18)
[2023-08-25 09:26] LABS: GLUCOMETER DEV NAME(LOC) 5N.2C; GLUCOSE,POINT OF CARE 80 MG/DL (70-110)
[2023-08-25] MEDS: DEXTROSE 50%-WATER 25 GM/50 ML SYRINGE IVP PRN (12:11)
[2023-08-25] MEDS: DEXTROSE 5%-0.45% SODIUM CHL 1,000 ML IV ONE (12:48)
[2023-08-25 13:16] LABS: GLUCOMETER DEV NAME(LOC) 5S.1B; GLUCOSE,POINT OF CARE 64 MG/DL (70-110)
[2023-08-25 13:21] LABS: GLUCOMETER DEV NAME(LOC) 5S.1B; GLUCOSE,POINT OF CARE 113 MG/DL (70-110)
[2023-08-25] MEDS ORDERED: LIDOCAINE/PF 1% 30 ML VIAL ONE ×2 (16:25→17:53)
[2023-08-25] MEDS ORDERED: SODIUM BICARBONATE 50 MEQ/50 ML VIAL ONE (16:25)
[2023-08-25] MEDS ORDERED: CeFAZolin SODIUM 1 GM VIAL ONE ×2 (16:25→17:46)
[2023-08-25] MEDS ORDERED: IOHEXOL 300 MG/ML 50 ML VIAL ONE (17:32)
[2023-08-25] MEDS ORDERED: FentaNYL CITRATE PF 100 MCG/2 ML VIAL ONE (17:38)
[2023-08-25] MEDS ORDERED: MIDAZOLAM HCL 2 MG/2 ML VIAL ONE (17:38)
[2023-08-25] MEDS ORDERED: DiphenhydrAMINE HCL 50 MG/ML VIAL ONE (17:46)
[2023-08-25] MEDS ORDERED: IOHEXOL 300 MG/ML 10 ML VIAL ONE (18:00)
[2023-08-25] MEDS: DiphenhydrAMINE HCL 50 MG/ML VIAL IVP ONE (18:14)
[2023-08-25] MEDS: IOHEXOL 300 MG/ML 50 ML VIAL IARTER ONE (18:14)
[2023-08-25] MEDS: CeFAZolin SODIUM 1 GM VIAL IVP ONE (18:14)
[2023-08-25] MEDS: MIDAZOLAM HCL 2 MG/2 ML VIAL IVP ONE (18:15)
[2023-08-25] MEDS: FentaNYL CITRATE PF 100 MCG/2 ML VIAL IVP ONE ×2 (18:15→18:37)
[2023-08-25 18:16] LABS: GLUCOMETER DEV NAME(LOC) 5S.2C; GLUCOSE,POINT OF CARE 96 MG/DL (70-110)
[2023-08-25] MEDS: LIDOCAINE 1% 30 ML/SOD BICARB 8.4% 4 ML SQ ONE ×2 (18:19→18:28)
[2023-08-25] MEDS: IOHEXOL 300 MG/ML 10 ML VIAL IVP ONE (18:21)
[2023-08-25] MEDS: SODIUM POLYSTYRENE SULFONATE 15 GM/60 ML SUSPENSION BOTTLE PO ONE (20:09)
[2023-08-25 22:20] LABS: GLUCOMETER DEV NAME(LOC) 5S.2C; GLUCOSE,POINT OF CARE 58 MG/DL (70-110)
[2023-08-26] MEDS: CeFAZolin 1 GM/DEXTROSE 50 ML IV SCH (01:34)
[2023-08-26] MEDS ORDERED: SODIUM CHLORIDE 0.9% 250 ML IV ONE (01:37)
[2023-08-26 04:00] VITALS: BP 137/91; PULSE 81; RESP 18
[2023-08-26 07:35] LABS: GLUCOMETER DEV NAME(LOC) 5S.1B; GLUCOSE,POINT OF CARE 78 MG/DL (70-110)
[2023-08-26 07:52] LABS: BASOPHILS % (AUTO) 0.6 % (0.0-2.0); EOSINOPHILS % (AUTO) 0.4 % (1.0-6.0); HEMATOCRIT 35.4 % (41-53); HEMOGLOBIN 11.1 g/dL (13.5-17.5); LYMPHOCYTES # (AUTO) 0.9 K/uL (1.0-4.8); MEAN CORPUSCULAR HEMOGLOBIN 28.6 pg (26.0-34.0); MEAN CORPUSCULAR HGB CONC 31.5 G/dL (31.0-37.0); MEAN CORPUSCULAR VOLUME 91 fL (80-100); MONOCYTES # (AUTO) 0.9 K/uL (0.1-1.0); NEUTROPHILS # (AUTO) 4.3 K/uL (1.8-7.7); PLATELET COUNT (AUTO) 155 K/uL (150-450); RED BLOOD CELL COUNT(AUTO) 3.89 MIL/uL (4.50-5.90); RED CELL DISTRIBUTION WIDTH 16.2 % (11.5-14.5); WHITE BLOOD COUNT (AUTO) 6.1 K/uL (4.5-11.0)
[2023-08-26 07:57] LABS: CALCIUM, TOTAL 8.6 mg/dL (8.8-10.5); CREATININE 1.59 mg/dL (0.60-1.30); POTASSIUM 5.8 mmol/L (3.5-5.1)
[2023-08-26 08:20] VITALS: BP 134/98; PULSE 67; RESP 18; TEMP 97.4
[2023-08-26] MEDS: SODIUM ZIRCONIUM CYCLOSILICATE 5 GM POWDER PACKET PO ONE (09:15)
[2023-08-26] MEDS: CARVEDILOL 3.125 MG TABLET PO SCH (09:15)
[2023-08-26 11:36] VITALS: BP 140/93; PULSE 80; RESP 18; TEMP 97.6
[2023-08-26 11:41] LABS: GLUCOMETER DEV NAME(LOC) 5S.2C; GLUCOSE,POINT OF CARE 90 MG/DL (70-110)
[2023-08-26 14:17] LABS: GLUCOMETER DEV NAME(LOC) 5N.1D; GLUCOSE,POINT OF CARE 120 MG/DL (70-110)
[2023-08-26 15:23] LABS: CALCIUM, TOTAL 8.1 mg/dL (8.8-10.5); CREATININE 1.54 mg/dL (0.60-1.30); POTASSIUM 4.9 mmol/L (3.5-5.1)
[2023-08-26 15:44] VITALS: BP 145/95; PULSE 82; RESP 18; TEMP 97.4
[2023-08-26 19:19] VITALS: BP 142/81; PULSE 84; RESP 18; TEMP 98.4
[2023-08-26 19:56] LABS: GLUCOMETER DEV NAME(LOC) 5N.2C; GLUCOSE,POINT OF CARE 81 MG/DL (70-110)
[2023-08-26 23:25] VITALS: BP 125/81; PULSE 77; RESP 18; TEMP 98.3
[2023-08-27 04:47] VITALS: BP 145/77; PULSE 77; RESP 18; TEMP 97.5
[2023-08-27 06:20] LABS: GLUCOMETER DEV NAME(LOC) 5N.2C; GLUCOSE,POINT OF CARE 132 MG/DL (70-110)
[2023-08-27 07:51] LABS: HEMOGLOBIN 10.1 g/dL (13.5-17.5); MEAN CORPUSCULAR HEMOGLOBIN 29.1 pg (26.0-34.0); MEAN CORPUSCULAR HGB CONC 32.8 G/dL (31.0-37.0); MEAN CORPUSCULAR VOLUME 89 fL (80-100); PLATELET COUNT (AUTO) 151 K/uL (150-450); RED BLOOD CELL COUNT(AUTO) 3.49 MIL/uL (4.50-5.90); WHITE BLOOD COUNT (AUTO) 4.8 K/uL (4.5-11.0)
[2023-08-27 08:03] LABS: BAND NEUTROPHILS % (MANUAL) 0 % (0-5)
[2023-08-27 08:05] VITALS: BP 150/99; PULSE 80; RESP 19; TEMP 98
[2023-08-27] MEDS: CARVEDILOL 6.25 MG TABLET PO SCH (08:12)
[2023-08-27 08:15] LABS: ANION GAP 8 mmol/L (8-16); CALCIUM, TOTAL 8.1 mg/dL (8.8-10.5); CARBON DIOXIDE 23 mmol/L (22-29); CHLORIDE 106 mmol/L (98-107); CREATININE 1.35 mg/dL (0.60-1.30); GLOMERULAR FILTR. RATE CALC > 60 mL/min (>60); GLUCOSE,RANDOM 62 mg/dL (70-110); POTASSIUM 5.1 mmol/L (3.5-5.1); SODIUM SERUM 137 mmol/L (136-145); UREA NITROGEN, BLOOD 24 mg/dL (7-18)
[2023-08-27 10:14] LABS: LYMPHOCYTES % (MANUAL) 30 % (22-44); MONOCYTES % (MANUAL) 13 % (2-9); SEGMENTED NEUTROPHILS % 57 % (40-70); TOTAL CELLS COUNTED 100
[2023-08-27 11:40] VITALS: BP 130/85; PULSE 77; RESP 19; TEMP 97.8
[2023-08-27 14:11] LABS: GLUCOMETER DEV NAME(LOC) 5S.2D; GLUCOSE,POINT OF CARE 98 MG/DL (70-110)
[2023-08-27] MEDS ORDERED: CARV6 PO (14:57)
[2023-08-27] MEDS ORDERED: FERR325T27 PO (14:57)
[2023-08-27] MEDS ORDERED: LEVO-72 PO (14:57)
[2023-08-27 15:53] VITALS: BP 159/101; PULSE 79; RESP 18; TEMP 98.4
[2023-08-27 16:30] VITALS: BP 140/82; PULSE 80; RESP 18
[2023-08-27 17:10] LABS: GLUCOMETER DEV NAME(LOC) 5S.1B; GLUCOSE,POINT OF CARE 64 MG/DL (70-110)
[2023-08-28 06:31] LABS: GLUCOMETER DEV NAME(LOC) 5S.2D; GLUCOSE,POINT OF CARE 88 MG/DL (70-110)
== END 2023-08-27 20:30 | disposition home or self-care (01) | DRG 242 ==
LOC: EMS 16:37 → 5S 22:10
PROVIDERS: ADMIT Internal Medicine; ATTEND Internal Medicine
PROC: 0JH607Z Insertion of Cardiac Resynchronization Pacemaker Pulse Generator into Chest Subcutaneous Tissue and Fascia, Open Approach (ICD-10-PCS; principal; 2023-08-25)
PROC: 02H63JZ Insertion of Pacemaker Lead into Right Atrium, Percutaneous Approach (ICD-10-PCS; 2023-08-25)
PROC: 02HK3JZ Insertion of Pacemaker Lead into Right Ventricle, Percutaneous Approach (ICD-10-PCS; 2023-08-25)
PROC: B51N1ZA Fluoroscopy of Left Upper Extremity Veins using Low Osmolar Contrast, Guidance (ICD-10-PCS; 2023-08-25)
PROC: 02HL3JZ Insertion of Pacemaker Lead into Left Ventricle, Percutaneous Approach (ICD-10-PCS; 2023-08-25)
PROC: 4B02XSZ Measurement of Cardiac Pacemaker, External Approach (ICD-10-PCS; 2023-08-26)
DX: I13.0 Hypertensive heart and chronic kidney disease with heart failure and stage 1 through stage 4 chronic kidney disease, or unspecified chronic kidney disease (principal); I50.43 Acute on chronic combined systolic (congestive) and diastolic (congestive) heart failure; J18.9 Pneumonia, unspecified organism; J96.01 Acute respiratory failure with hypoxia; I44.2 Atrioventricular block, complete; E87.1 Hypo-osmolality and hyponatremia; J44.0 Chronic obstructive pulmonary disease with (acute) lower respiratory infection; N17.9 Acute kidney failure, unspecified; Z59.00 Homelessness unspecified; F20.9 Schizophrenia, unspecified; N18.9 Chronic kidney disease, unspecified; E11.40 Type 2 diabetes mellitus with diabetic neuropathy, unspecified; E11.22 Type 2 diabetes mellitus with diabetic chronic kidney disease; E11.51 Type 2 diabetes mellitus with diabetic peripheral angiopathy without gangrene; E78.00 Pure hypercholesterolemia, unspecified; L03.031 Cellulitis of right toe; F17.210 Nicotine dependence, cigarettes, uncomplicated; E87.5 Hyperkalemia; R74.01 Elevation of levels of liver transaminase levels; Z79.82 Long term (current) use of aspirin; Z79.899 Other long term (current) drug therapy; Z82.49 Family history of ischemic heart disease and other diseases of the circulatory system; Z83.3 Family history of diabetes mellitus; Z89.421 Acquired absence of other right toe(s)
CPT/HCPCS: 71045; 71046; 71275; 78472; 80048; 80053; 80202; 81001; 81002; 82550; 82962; 83036; 83605; 83735; 83880; 84484; 85025; 85379; 87040; 93005; 93306; 93971; 97161; 97530; 99285; C8924; G0378; J0690; J1200; J1644; J1940; J2250; J2543; J3010; J3490; J7030; J7050; Q9967; 36415-L1; 36415-TC; A9560